=== PATIENT | female | born 1945 | race Caucasian/White ===

== ENCOUNTER 2018-06-20 16:34 | Outpatient (REF) | payer MEDICARE, OTHER, SELFPAY ==
[2018-06-20 19:18] LABS: Anion Gap 11.7 mmol/L (3-11); BUN 19 mg/dL (7-18); CO2 28.3 mmol/L (21.0-32.0); CREATININE 0.93 mg/dL (0.55-1.02); Calcium 10.5 mg/dL (8.5-10.1); Chloride 99 mmol/L (98-107); Glucose 102 mg/dL (70-100); Potassium 4.2 mmol/L (3.5-5.1); Sodium 139 mmol/L (136-145); TSH 2.06 uIU/mL (0.358-3.74)
== END 2018-06-20 16:54 ==
LOC: NCHCN 16:34
PROVIDERS: PCP Internal Medicine; Visit Provider Internal Medicine
DX: I10 Essential (primary) hypertension (principal)
CPT/HCPCS: 80048; 84443

== ENCOUNTER 2019-06-25 12:09 | Outpatient (REF) | payer MEDICARE, OTHER, SELFPAY ==
[2019-06-25 19:50] LABS: Iron 93 ug/dL (50-175); Total Iron Binding Capacity 314 ug/dL (250-450); Transferrin Sat 30 % (15-50)
[2019-06-25 20:04] LABS: ALT 45 U/L (14-59); Anion Gap 8.6 mmol/L (3-11); BUN 25 mg/dL (7-18); CO2 28.4 mmol/L (21.0-32.0); CREATININE 0.86 mg/dL (0.55-1.02); Calcium 9.1 mg/dL (8.5-10.1); Chloride 103 mmol/L (98-107); Ferritin 258 ng/mL (8-388); Glucose 99 mg/dL (70-100); LDL CHOLESTEROL 92 mg/dL (<100); Potassium 4.1 mmol/L (3.5-5.1); Sodium 140 mmol/L (136-145)
== END 2019-06-25 12:29 ==
LOC: NCHCN 12:09
PROVIDERS: PCP Internal Medicine; Visit Provider Internal Medicine
DX: I10 Essential (primary) hypertension (principal); R73.09 Other abnormal glucose; E03.9 Hypothyroidism, unspecified; R79.89 Other specified abnormal findings of blood chemistry
CPT/HCPCS: 80048; 83721; 82728; 83540; 83550; 84460

== ENCOUNTER 2020-06-30 17:50 | Outpatient (REF) | payer MEDICARE, OTHER, SELFPAY ==
[2020-06-30 19:38] LABS: ALT 40 U/L (14-59); Anion Gap 10.6 mmol/L (3-11); BUN 22 mg/dL (7-18); CO2 27.4 mmol/L (21.0-32.0); CREATININE 0.98 mg/dL (0.55-1.02); Chloride 102 mmol/L (98-107); Estimated GFR 55.79 (mL/min/1.73m2); Glucose 92 mg/dL (74-106); LDL CHOLESTEROL 101 mg/dL (<100); Potassium 5.1 mmol/L (3.5-5.1); Sodium 140 mmol/L (136-145); TSH 2.18 uIU/mL (0.36-3.74)
== END 2020-06-30 18:10 ==
LOC: NCHCN 17:50
PROVIDERS: PCP Internal Medicine; Visit Provider Internal Medicine
DX: E87.6 Hypokalemia (principal); E03.9 Hypothyroidism, unspecified; I10 Essential (primary) hypertension; Z71.89 Other specified counseling
CPT/HCPCS: 80048; 83721; 84443; 84460

== ENCOUNTER 2020-09-16 18:21 | Outpatient (REF) | payer MEDICARE, OTHER, SELFPAY | END 2020-09-16 18:41 | LOC: NCHCN 18:21 | PROVIDERS: PCP Internal Medicine; Visit Provider Internal Medicine | DX: R10.30 Lower abdominal pain, unspecified (principal) | CPT/HCPCS: 87086 ==

== ENCOUNTER 2021-07-05 16:16 | Outpatient (REF) | payer MEDICARE, OTHER, SELFPAY ==
[2021-07-05 21:51] LABS: ALT 46 U/L (14-59); Anion Gap 11.7 mmol/L (3-11); BUN 24 mg/dL (7-18); CO2 26.3 mmol/L (21.0-32.0); CREATININE 0.8 mg/dL (0.55-1.02); Chloride 104 mmol/L (98-107); Glucose 92 mg/dL (74-106); LDL CHOLESTEROL 91 mg/dL (<100); Sodium 142 mmol/L (136-145)
== END 2021-07-05 16:17 | disposition home or self-care (01) ==
LOC: NCHCN 16:16
PROVIDERS: PCP Internal Medicine; Visit Provider Internal Medicine
DX: I10 Essential (primary) hypertension (principal); E78.5 Hyperlipidemia, unspecified; L40.8 Other psoriasis
CPT/HCPCS: 80048; 83721; 84460

== ENCOUNTER 2022-01-30 15:03 | Outpatient (REF) | payer MEDICARE, OTHER, SELFPAY ==
[2022-01-30 20:16] LABS: Anion Gap 8.2 mmol/L (3-11); BUN 32 mg/dL (7-18); CO2 28.8 mmol/L (21.0-32.0); CREATININE 0.8 mg/dL (0.55-1.02); Calcium 8.9 mg/dL (8.5-10.1); Chloride 104 mmol/L (98-107); Glucose 105 mg/dL (74-106); Potassium 4.9 mmol/L (3.5-5.1); Sodium 141 mmol/L (136-145)
== END 2022-01-30 15:04 | disposition home or self-care (01) ==
LOC: NCHCN 15:03
PROVIDERS: PCP Internal Medicine; Visit Provider Internal Medicine
DX: I10 Essential (primary) hypertension (principal)
CPT/HCPCS: 80048

== ENCOUNTER 2023-02-14 12:20 | Outpatient (REF) | payer MEDICARE, OTHER, SELFPAY ==
[2023-02-14 18:50] LABS: Anion Gap 9.1 mmol/L (3-11); BUN 20 mg/dL (7-18); CO2 27.9 mmol/L (21.0-32.0); CREATININE 1.1 mg/dL (0.55-1.02); Calcium 9.3 mg/dL (8.5-10.1); Chloride 101 mmol/L (98-107); Glucose 106 mg/dL (74-106); Potassium 4.3 mmol/L (3.5-5.1); Sodium 138 mmol/L (136-145)
== END 2023-02-14 12:21 | disposition home or self-care (01) ==
LOC: NCHCN 12:20
PROVIDERS: PCP Internal Medicine; Visit Provider Internal Medicine
DX: K52.9 Noninfective gastroenteritis and colitis, unspecified (principal)
CPT/HCPCS: 80048

== ENCOUNTER 2024-12-03 15:01 | Outpatient (REF) | payer MEDICARE, OTHER, SELFPAY ==
[2024-12-03 19:20] LABS: HCT 44.9 % (36.0-46.0); HGB 14.9 g/dL (11.2-15.7); MCH 32.5 pg (27.0-33.0); MCHC 33.2 % (32.0-36.0); MCV 98 fL (80-95); Platelet Count 239 10^3/uL (130-400); RBC 4.59 10^6/uL (3.93-5.22); RDW 13.8 % (11.7-14.6); RDW-SD 49.9 fL; WBC 8.16 10^3/uL (4.4-10.8)
[2024-12-03 19:53] LABS: Anion Gap 9.5 mmol/L (3-11); BUN 20 mg/dL (7-18); CO2 26.5 mmol/L (21.0-32.0); CREATININE 0.9 mg/dL (0.55-1.02); Calcium 9.7 mg/dL (8.5-10.1); Calculated LDL 76 mg/dL (<100); Chloride 108 mmol/L (98-107); Cholesterol 179 mg/dL (<200); Estimated GFR 65.84 (mL/min/1.73m2); Glucose 100 mg/dL (74-106); HDL Cholesterol 92 mg/dL (>or=50); Sodium 144 mmol/L (136-145); TSH 1.89 uIU/mL (0.36-3.74); Triglyceride 57 mg/dL (<150)
== END 2024-12-03 15:02 | disposition home or self-care (01) ==
LOC: NCHCN 15:01
PROVIDERS: PCP Internal Medicine; Visit Provider Internal Medicine
DX: I10 Essential (primary) hypertension (principal); G47.01 Insomnia due to medical condition
CPT/HCPCS: 80048; 80061; 85027; 84443

== ENCOUNTER 2024-12-31 15:54 | Outpatient (REF) | payer MEDICARE, OTHER, SELFPAY ==
[2024-12-31 20:37] LABS: Vitamin B12 545 pg/mL (193-986)
[2025-01-04 12:29] LABS: Albumin 62.1 % (55.8-66.1); Albumin g/dL 4.5 g/dL (3.6-5.2); Total Protein 7.2 g/dL (6.3-8.2)
== END 2024-12-31 15:55 | disposition home or self-care (01) ==
LOC: NCHCN 15:54
PROVIDERS: PCP Internal Medicine; Visit Provider Internal Medicine
DX: R53.83 Other fatigue (principal)
CPT/HCPCS: 82607; 84165